=== PATIENT | male | born 1980 | race Caucasian/White ===

== ENCOUNTER 2018-04-04 20:06 | Emergency (ER) | payer SELFPAY ==
[2018-04-04 20:11] VITALS: BP 110/63; PULSE 78; TEMP 98; BMI 28.3
[2018-04-04] MEDS ORDERED: ACETAMINOPHEN 325 MG TABLET (FP) PO ONE (20:31)
--- NOTE | 2018-04-04 20:36 | PDOC ---
History of Present Illness - General Chief Complaint: Injury Stated Complaint: RT LEG INJURY Time Seen by Provider: 04/04/18 20:12 History Source: Patient - History of Present Illness Occurred: reports: this morning Lower Extremity Pain Location: right: foot Method of Injury: Yes: fell Past History - Past Medical History Allergies/Adverse Reactions: Allergies Allergy/AdvReac Type Severity Reaction Status Date / Time No Known Allergies Allergy Verified 04/04/18 20:11 COPD: No - Suicide/Smoking/Psychosocial Hx Smoking History: Current every day smoker Number of Cigarettes Smoked Daily: 10 Information on smoking cessation initiated: No Review of Systems - Review of Systems Musculoskeletal: Yes: Joint Pain, Joint Swelling *Physical Exam - Vital Signs Last Vital Signs Temp Pulse Resp BP Pulse Ox 98 F 78 18 110/63 100 04/04/18 20:07 04/04/18 20:07 04/04/18 20:07 04/04/18 20:07 04/04/18 20:07 - Physical Exam General Appearance: Yes: Appropriately Dressed. No: Apparent Distress Neck: positive: Supple Respiratory/Chest: negative: Respiratory Distress Extremity: positive: Normal Inspection, Tender (to medial R foot). negative: Swelling Integumentary: positive: Dry, Warm Neurologic: positive: Fully Oriented, Alert, Normal Mood/Affect ED Treatment Course - RADIOLOGY Radiology Studies Ordered: Category Date Time Status ANKLE & FOOT-RIGHT* [RAD] Stat Radiology 04/04/18 20:12 Ordered Medical Decision Making - Medical Decision Making 04/04/18 20:32 Patient is a 37-year-old male who denies any past medical history, here with right ankle pain and swelling status post injury this a.m. Patient appears vague about how he sustained injury, just says that he "slipped" but not giving me any further details. States he is able to ambulate but painful. No other injuries at this time. Has not taken anything for pain. See exam M/l ankle sprain -tylenol -xr 04/04/18 20:56 XR neg for fx. JOSHUA applied and crutches given. Dc w/ OTC meds prn pain and ortho referral as needed *DC/Admit/Observation/Transfer Diagnosis at time of Disposition: Ankle sprain Qualifiers: Encounter type: initial encounter Involved ligament of ankle: unspecified ligament Laterality: right Qualified Code(s): S93.401A - Sprain of unspecified ligament of right ankle, initial encounter - Discharge Dispostion Disposition: HOME Condition at time of disposition: Good - Referrals Referrals: Noel Dubon MD [Staff Physician] - - Patient Instructions Printed Discharge Instructions: Ankle Sprain Additional Instructions: Ankle xray shows no broken bones. You most likely sustained a sprain. This condition can take 1-2 weeks. Take motrin or tylenol as needed for pain If pain persists after 2 weeks, follow-up with Dr. Dubon of orthopedic - Post Discharge Activity
[2018-04-04] MEDS ORDERED: ACETAMINOPHEN 325 MG TABLET (FP) ONE (20:52)
== END 2018-04-04 21:45 | disposition home or self-care (01) ==
LOC: JERFT 20:06
DX: S93.401A Sprain of unspecified ligament of right ankle, initial encounter (principal); W01.0XXA Fall on same level from slipping, tripping and stumbling without subsequent striking against object, initial encounter; Y93.89 Activity, other specified; Y92.89 Other specified places as the place of occurrence of the external cause; Y99.8 Other external cause status
CPT/HCPCS: 73610-TC-RT-FY; 73630-TC-RT-FY; 99281-25

== ENCOUNTER 2018-05-28 09:32 | Emergency (ER) | payer SELFPAY ==
[2018-05-28 09:50] VITALS: BP 101/68; PULSE 82; TEMP 98; BMI 26.6
[2018-05-28] MEDS ORDERED: IBUPROFEN 400 MG TABLET (FP) PO ONE ×2 (10:43→10:58)
--- NOTE | 2018-05-28 10:43 | PDOC ---
History of Present Illness - General Chief Complaint: Injury Stated Complaint: RIGHT SIDE PAIN Time Seen by Provider: 05/28/18 10:04 History Source: Patient Exam Limitations: No Limitations - History of Present Illness Initial Comments: 05/28/18 19:28 Patient is a 38-year-old male who comes in to the emergency department today complaining of right wrist pain. Patient states that approximately 3 weeks ago he fell of a sanitation truck. Patient reports is approximately 3 off the ground. States that he landed on his right side. Patient was seen at [place] at the time of the injury and was told he had no rib fractures. Patient still in pain and is worse with movement. Weeks later so he presents for reevaluation. Denies fevers, chills, difficulty breathing, pain with breathing, nausea, vomiting and diarrhea. Past History - Past Medical History Allergies/Adverse Reactions: Allergies Allergy/AdvReac Type Severity Reaction Status Date / Time No Known Allergies Allergy Verified 05/28/18 09:47 Home Medications: Ambulatory Orders NK [No Known Home Medication] 05/28/18 COPD: No - Immunization History Immunization Up to Date: Yes - Suicide/Smoking/Psychosocial Hx Smoking History: Current every day smoker Number of Cigarettes Smoked Daily: 5 Information on smoking cessation initiated: No Hx Alcohol Use: No Drug/Substance Use Hx: No Review of Systems - Review of Systems Able to Perform ROS?: Yes Comments:: 05/28/18 19:29 CONSTITUTIONAL: Absent: fever, chills, diaphoresis, generalized weakness, malaise, loss of appetite HEENT: Absent: rhinorrhea, nasal congestion, throat pain, throat swelling, difficulty swallowing, mouth swelling, ear pain, eye pain, visual Changes CARDIOVASCULAR: Absent: chest pain, loss of consciousness, palpitations, irregular heart rate, peripheral edema RESPIRATORY: Absent: cough, shortness of breath, dyspnea with exertion, orthopnea, wheezing, stridor, hemoptysis GASTROINTESTINAL: Absent: abdominal pain, abdominal distension, nausea, vomiting, diarrhea, constipation, melena, hematochezia GENITOURINARY: Absent: dysuria, frequency, urgency, hesitancy, hematuria, flank pain, genital pain MUSCULOSKELETAL: Present: R rib pain Absent: arthralgia, joint swelling SKIN: Absent: rash, itching, pallor HEMATOLOGIC/IMMUNOLOGIC: Absent: easy bleeding, easy bruising, lymphadenopathy, frequent infections ENDOCRINE: Absent: unexplained weight gain, unexplained weight loss, heat intolerance, cold intolerance NEUROLOGIC: Absent: headache, focal weakness or paresthesias, dizziness, unsteady gait, seizure, mental status changes, bladder or bowel incontinence PSYCHIATRIC: Absent: anxiety, depression, suicidal or homicidal ideation, hallucinations. Is the patient limited Kinyarwanda proficient: No *Physical Exam - Vital Signs Last Vital Signs Temp Pulse Resp BP Pulse Ox 98.0 F 82 18 101/68 100 05/28/18 09:47 05/28/18 09:47 05/28/18 09:47 05/28/18 09:47 05/28/18 09:47 - Physical Exam Comments: 05/28/18 11:29 GENERAL: Well developed, well nourished. Awake and alert. No acute distress. HEENT: Normocephalic, atraumatic. PERRLA, EOMI. No conjunctival pallor. Sclera are non- icteric. Moist mucous membranes. Oropharynx is clear. NECK: Supple. Full ROM. No JVD. Carotid pulses 2+ and symmetric, without bruits. No thyromegaly. No lymphadenopathy. CARDIOVASCULAR: Regular rate and rhythm. No murmurs, rubs, or gallops. Distal pulses are 2+ and symmetric. PULMONARY: No evidence of respiratory distress. Lungs clear to auscultation bilaterally. No wheezing, rales or rhonchi. ABDOMINAL: Soft. Non-tender. Non-distended. No rebound or guarding. No organomegaly. Normoactive bowel sounds. MUSCULOSKELETAL TTP of the R ribs with palpable knot at the level of the 8th rib along the flank. Normal range of motion at all joints. No bony deformities or tenderness. No CVA tenderness. EXTREMITIES: No cyanosis. No clubbing. No edema. No calf tenderness. SKIN: Warm and dry. Normal capillary refill. No rashes. No jaundice. NEUROLOGICAL: Alert, awake, appropriate. Cranial nerves 2-12 intact. No deficits to light touch and temperature in face, upper extremities and lower extremities. No motor deficits in the in face, upper extremities and lower extremities. Normoreflexic in the upper and lower extremities. Normal speech. Toes are down- going bilaterally. Gait is normal without ataxia. PSYCHIATRIC: Cooperative. Good eye contact. Appropriate mood and affect. Moderate Sedation - Procedure Monitoring Vital Signs: Procedure Monitoring Vital Signs Temperature 98.0 F 05/28/18 09:47 Pulse Rate 82 05/28/18 09:47 Respiratory Rate 18 05/28/18 09:47 Blood Pressure 101/68 05/28/18 09:47 O2 Sat by Pulse Oximetry (%) 100 05/28/18 09:47 Medical Decision Making - Medical Decision Making 05/28/18 11:50 Wet read of rib series and CXR is negative for fractures Most likely a muscle spasm or bone bruise to the R ribs Will dc home with cyclobenzaprine and motrin Will give PCP follow up I discussed the physical exam findings, ancillary test results and final diagnoses with the patient. I answered all of the patient's questions. The patient was satisfied with the care received and felt comfortable with the discharge plan and treatment plan. The Patient agrees to follow up with the primary care physician/specialist within 24-72 hours. Return precautions were given. *DC/Admit/Observation/Transfer Diagnosis at time of Disposition: Rib pain on right side - Discharge Dispostion Disposition: HOME Condition at time of disposition: Stable Decision to Admit order: No - Referrals Referrals: Lefty Giron MD [Staff Physician] - - Patient Instructions Printed Discharge Instructions: DI for Rib Contusion Additional Instructions: You have rib pain It is either caused by a muscle spasm or a bone bruise Please take the cyclobenzaprine before bed to help with the spasm. Do not drive or drink alcohol after taking this medication as it may make you sleepy Take Motrin 800mg every 8 hours as needed for pain Follow up with your primary care doctor if your symptoms persist Return to the ED for difficulty breathing, worsening pain, fever, or if you have any changes in your symptoms - Post Discharge Activity Forms/Work/School Notes: Back to Work
== END 2018-05-28 12:01 | disposition home or self-care (01) ==
LOC: JERFT 09:32
DX: R07.81 Pleurodynia (principal); F17.210 Nicotine dependence, cigarettes, uncomplicated
CPT/HCPCS: 71046-TC-FY; 71101-TC-RT-FY; 99281-25